=== PATIENT | male | born 1985 | race Caucasian/White ===

== ENCOUNTER 2016-10-21 07:35 | Emergency (ER) | payer OTHER ==
[~2016-10-21] VITALS: Ht 182.8 cm; Wt 106.6 kg
[~2016-10-21 07:35] MED LIST: BACTRIM DS 8001 TA1 PO; CEFADROXIL500 M1 PO; CEPHALEXIN500 M1 PO; MOTRIN800 MG PO; PEN-VEE K500 MG PO
[2016-10-21] MEDS ORDERED: AMOXICILLIN500 M2 PO (08:39)
== END 2016-10-21 08:41 | disposition home or self-care (01) ==
LOC: ED 07:35
DX: T15.01XA Foreign body in cornea, right eye, initial encounter (principal); H66.92 Otitis media, unspecified, left ear; H10.9 Unspecified conjunctivitis; F17.200 Nicotine dependence, unspecified, uncomplicated

== ENCOUNTER 2017-01-09 15:51 | Emergency (ER) | payer OTHER ==
[~2017-01-09] VITALS: Ht 182.8 cm; Wt 99.8 kg
[~2017-01-09 15:51] MED LIST changes: +AMOXICILLIN500 M2 PO
[2017-01-09 16:26] LABS: BASO % 0.4 % (0.0-1.0); EOS # 0.3 10*3/uL (0.0-0.4); EOS % 4.1 % (1.0-4.0); HEMATOCRIT 39.7 % (42.0-52.0); HEMOGLOBIN 14.2 g/dl (14.0-18.0); LYMPH # 1.6 10*3/uL (1.3-4.4); LYMPH % 19.3 % (27.0-41.0); MEAN CELL VOLUME 90.6 fl (80.0-94.0); MEAN CORPUSCULAR HGB 32.4 pg (27.0-31.0); MEAN CORPUSCULAR HGB CONC 35.8 g/dl (33.0-37.0); MONO # 0.8 10*3/uL (0.1-1.0); MONO % 9.4 % (3.0-9.0); NEUT # 5.5 10*3/uL (2.3-7.9); NEUT % 66.6 % (47.0-73.0); PLATELET COUNT AUTOMATED 151 10*3/uL (130-400); RED BLOOD COUNT 4.38 10*6/uL (4.50-5.90); RED CELL DISTRI WIDTH 12.1 % (0-14.5); WHITE BLOOD COUNT 8.3 10*3/uL (4.8-10.8)
[2017-01-09 16:34] LABS: PROTHROMBIN TIME 10.7 SECONDS (9.0-12.4)
[2017-01-09 16:40] LABS: ALBUMIN 3.7 gm/dl (3.1-4.5); ALKALINE PHOSPHATASE 76 U/L (45-117); BILIRUBIN, TOTAL 1.1 mg/dl (0.2-1.0); BUN 10 mg/dl (7-24); CARBON DIOXIDE 23 mmol/L (21-32); CHLORIDE 104 mmol/L (98-107); EST GLOM FILT AFRICAN AMERICAN > 60 ml/min; GLUCOSE 94 mg/dL (65-99); POTASSIUM 3.3 mmol/L (3.5-5.1); SGOT/AST 29 IU/L (3-35); SGPT/ALT 34 U/L (12-78); SODIUM 135 mmol/L (136-145)
[2017-01-09] MEDS ORDERED: ZITHROMAX250 MG PO (18:24)
[2017-01-09] MEDS ORDERED: AUGMENTIN 875875 MG PO (18:24)
== END 2017-01-09 19:52 | disposition home or self-care (01) ==
LOC: ED 15:51
PROVIDERS: Nurse Practitioner Family
DX: J01.90 Acute sinusitis, unspecified (principal); J18.9 Pneumonia, unspecified organism; J44.9 Chronic obstructive pulmonary disease, unspecified; R11.2 Nausea with vomiting, unspecified; H92.03 Otalgia, bilateral; F17.200 Nicotine dependence, unspecified, uncomplicated

== ENCOUNTER 2019-07-14 18:09 | Emergency (ER) | payer OTHER ==
[~2019-07-14] VITALS: Ht 182.8 cm; Wt 113.4 kg
[~2019-07-14 18:09] MED LIST changes: +AUGMENTIN 875875 MG PO; +ZITHROMAX250 MG PO
[2019-07-14 19:03] LABS: BASO % 0.4 % (0.0-1.0); EOS # 0.4 10*3/uL (0.0-0.4); EOS % 3.8 % (1.0-4.0); HEMATOCRIT 47.3 % (42.0-52.0); HEMOGLOBIN 16.1 g/dl (14.0-18.0); LYMPH % 39.9 % (27.0-41.0); MEAN CORPUSCULAR HGB 32.3 pg (27.0-31.0); MEAN PLATELET VOLUME 11.1 fl (9.6-12.3); MONO # 0.5 10*3/uL (0.1-1.0); MONO % 5.2 % (3.0-9.0); NEUT % 50.4 % (47.0-73.0); PLATELET COUNT AUTOMATED 211 10*3/uL (130-400); RED BLOOD COUNT 4.98 10*6/uL (4.50-5.90); RED CELL DISTRI WIDTH 12.4 % (0-14.5)
[2019-07-14 19:19] LABS: ALBUMIN 4.3 gm/dl (3.1-4.5); ALKALINE PHOSPHATASE 110 U/L (45-117); BUN 21 mg/dl (7-24); CHLORIDE 110 mmol/L (98-107); CREATININE 0.93 mg/dL (0.70-1.30); LIPASE 138 U/L (73-393); SGOT/AST 20 IU/L (3-35); SGPT/ALT 54 U/L (12-78); SODIUM 141 mmol/L (136-145); TOTAL PROTEIN 8.1 gm/dL (6.4-8.2)
[2019-07-14 20:18] LABS: BILIRUBIN NEGATIVE (NEGATIVE); BLOOD NEGATIVE (NEGATIVE); CLARITY CLEAR (CLEAR); COLOR YELLOW (YELLOW); GLUCOSE NEGATIVE (NEGATIVE); KETONE NEGATIVE (NEGATIVE); LEUKO ESTERASE NEGATIVE (NEGATIVE); NITRITE NEGATIVE (NEGATIVE); SPECIFIC GRAVITY 1.025 (1.005-1.030); UROBILINOGEN 0.2 E.U./dl (0.2-1.0)
[2019-07-14 20:40] LABS: BACTERIA TRACE; RBC 0-2 rbc/hpf (0-2); WBC 0-2 wbc/hpf (0-5)
== END 2019-07-14 21:10 | disposition home or self-care (01) ==
LOC: ED 18:09
PROVIDERS: Nurse Practitioner Family
DX: K59.00 Constipation, unspecified (principal); Z79.2 Long term (current) use of antibiotics

== ENCOUNTER 2021-12-05 10:02 | Emergency (ER) | payer OTHER ==
[~2021-12-05] VITALS: Wt 113.4 kg
[2021-12-05] MEDS ORDERED: ZITHROMAX250 MG PO (10:57)
[2021-12-05] MEDS ORDERED: PREDNISONE50 MG PO (10:57)
== END 2021-12-05 11:10 | disposition home or self-care (01) ==
LOC: ED 10:02
DX: J20.9 Acute bronchitis, unspecified (principal); F17.200 Nicotine dependence, unspecified, uncomplicated

== ENCOUNTER 2023-05-11 19:06 | Emergency (ER) | payer MEDICAID ==
[~2023-05-11] VITALS: Ht 182.8 cm; Wt 120.2 kg
[~2023-05-11 19:06] MED LIST changes: +PREDNISONE50 MG PO
[2023-05-11 20:29] LABS: BASO % 0.3 % (0.0-1.0); EOS # 0.2 10*3/uL (0.0-0.4); EOS % 1.7 % (1.0-4.0); HEMATOCRIT 42.2 % (42.0-52.0); LYMPH # 1.6 10*3/uL (1.3-4.4); LYMPH % 15.6 % (27.0-41.0); MEAN CELL VOLUME 93.6 fl (80.0-94.0); MEAN CORPUSCULAR HGB 33.3 pg (27.0-31.0); MEAN CORPUSCULAR HGB CONC 35.5 g/dl (33.0-37.0); MEAN PLATELET VOLUME 10.9 fl (9.6-12.3); MONO # 0.7 10*3/uL (0.1-1.0); MONO % 7.3 % (3.0-9.0); NEUT # 7.5 10*3/uL (2.3-7.9); NEUT % 74.9 % (47.0-73.0); PLATELET COUNT AUTOMATED 186 10*3/uL (130-400); RED BLOOD COUNT 4.51 10*6/uL (4.50-5.90); RED CELL DISTRI WIDTH 12.4 % (0-14.5)
[2023-05-11 20:40] LABS: ACT PARTIAL THROMBO TIME 27.1 SECONDS (20.0-32.1)
[2023-05-11 20:45] LABS: ALKALINE PHOSPHATASE 100 U/L (46-116); BUN 12 mg/dl (9-23); CHLORIDE 106 mmol/L (98-107); LIPASE 37 U/L (12-53); POTASSIUM 3.7 mmol/L (3.4-5.1); SGPT/ALT 50 U/L (5-49); TOTAL PROTEIN 7.4 gm/dL (6.0-8.0)
[2023-05-11] MEDS ORDERED: VIBRAMYCIN100 MG PO (21:16)
[2023-05-11] MEDS ORDERED: PREDNISONE20 M1 PO (21:16)
== END 2023-05-11 22:26 | disposition home or self-care (01) ==
LOC: ED 19:06
PROVIDERS: Internal Medicine
DX: J18.9 Pneumonia, unspecified organism (principal); Z20.822 Contact with and (suspected) exposure to COVID-19; F17.210 Nicotine dependence, cigarettes, uncomplicated

== ENCOUNTER → 2023-06-15 | Outpatient (CLI) | payer MEDICAID ==
[~2023-06-15] MED LIST changes: +PREDNISONE20 M1 PO; +VIBRAMYCIN100 MG PO
== END | disposition home or self-care (01) ==
LOC: CT 03:13
PROVIDERS: ATTEND Family Medicine
DX: R91.8 Other nonspecific abnormal finding of lung field (principal); K76.0 Fatty (change of) liver, not elsewhere classified

== ENCOUNTER → 2023-09-04 | Outpatient (CLI) | payer MEDICAID ==
[~2023-09-04] MED LIST changes: +IOHEXOL 300 MG/ML 100 ML VIAL IV ONE
[2023-09-04 16:55] LABS: BASO % 0.6 % (0.0-1.0); EOS # 0.2 10*3/uL (0.0-0.4); EOS % 2.5 % (1.0-4.0); HEMATOCRIT 41.5 % (42.0-52.0); LYMPH # 2.7 10*3/uL (1.3-4.4); MEAN CELL VOLUME 91.6 fl (80.0-94.0); MEAN CORPUSCULAR HGB 30.7 pg (27.0-31.0); MEAN CORPUSCULAR HGB CONC 33.5 g/dl (33.0-37.0); MEAN PLATELET VOLUME 10.8 fl (9.6-12.3); MONO # 0.6 10*3/uL (0.1-1.0); MONO % 8.4 % (3.0-9.0); NEUT # 3.3 10*3/uL (2.3-7.9); NEUT % 48.4 % (47.0-73.0); PLATELET COUNT AUTOMATED 173 10*3/uL (130-400); RED BLOOD COUNT 4.53 10*6/uL (4.50-5.90); WHITE BLOOD COUNT 6.8 10*3/uL (4.8-10.8)
[2023-09-04 17:33] LABS: ALKALINE PHOSPHATASE 82 U/L (46-116); BUN 16 mg/dl (9-23); CHLORIDE 106 mmol/L (98-107); CHOLESTEROL 229 mg/dL (<200); LDL CHOLESTEROL 144 mg/dL (9-159); POTASSIUM 3.9 mmol/L (3.4-5.1); SGPT/ALT 57 U/L (5-49); TRIGLYCERIDES 226 mg/dl (<150)
[2023-09-05 09:08] LABS: HBSAG Negative (Negative); HEP B CORE AB, IGM Negative (Negative); HEPATITIS C ANTIBODY Non Reactive (Non Reactive)
== END | disposition home or self-care (01) ==
LOC: CT 03:25
PROVIDERS: Occupational Therapist; ATTEND Family Medicine
DX: J98.11 Atelectasis (principal); R91.8 Other nonspecific abnormal finding of lung field; K76.0 Fatty (change of) liver, not elsewhere classified; F17.200 Nicotine dependence, unspecified, uncomplicated; Z79.899 Other long term (current) drug therapy

== ENCOUNTER → 2023-10-25 | Outpatient (CLI) | payer MEDICAID ==
[~2023-10-25] MED LIST changes: -IOHEXOL 300 MG/ML 100 ML VIAL IV ONE
== END ==
LOC: US 02:15
PROVIDERS: ATTEND Family Medicine
DX: K76.0 Fatty (change of) liver, not elsewhere classified (principal); R74.8 Abnormal levels of other serum enzymes

== ENCOUNTER → 2023-11-21 | Outpatient (CLI) | payer MEDICAID | END | disposition home or self-care (01) | LOC: CT 16:00 | PROVIDERS: ATTEND Family Medicine | DX: R91.8 Other nonspecific abnormal finding of lung field (principal); I25.10 Atherosclerotic heart disease of native coronary artery without angina pectoris; K76.0 Fatty (change of) liver, not elsewhere classified ==